=== PATIENT | male | born 1975 | race Caucasian/White ===

== ENCOUNTER 2018-01-14 08:50 | Emergency (ER) | payer SELFPAY ==
[2018-01-14 08:51] VITALS: BP 130/85; PULSE 77; RESP 18; TEMP 36.6; O2SAT 96; BMI 34.3
[2018-01-14] MEDS: AMOXICILLIN 500 MG CAPSULE PO (09:37)
[2018-01-14] MEDS: Naproxen 500 MG Tablet PO (09:37)
--- NOTE | 2018-01-14 09:39 | ED.DCSUM_ITS ---
- ER Visit Summary Date of Service: 01/14/18 Chief Complaint: [] Swelling over the left anterior periauricular area for a few days History of Present Illness: The patient is a 42 M [] hurts for a few days he has noticed some swelling over the anterior left periauricular area, he has had no other illness, he has had no fever no cough no mouth swelling no dental issues no ear complaints, no swelling elsewhere no fever no cough no weight loss no past history Physical Examination: [] 158/92, General, no distress resting comfortably HEENT is generally unremarkable, the oral cavity is unremarkable the mouth and throat are normal for the mouth is soft his teeth have no signs of percussion tenderness, over the left anterior auricular region there is a about 1 cm soft fullness that apparently represents a lymph node, there is no warmth to it redness or pain there is no other HEENT swelling, the neck is soft without adenopathy the abdomen is soft without any organomegaly his skin is unremarkable neurologically he is normal see the rest of the exam below The neck is supple no adenopathy Cardiovascular, regular rate and rhythm Lungs, clear bilateral Abdomen, soft nontender Extremities, no clubbing cyanosis or edema Neurologic, awake alert answering questions appropriately moving all 4 extremities I had a long conversation with the patient his HEENT exam shows no signs of obvious infection his ears and mouth and head exam are unremarkable, we did discuss the concept of cervical adenitis we also discussed the concept of lymphoma and other occult conditions his is familiar with that diagnosis at this time he started on amoxicillin Naprosyn and follow-up with [facility] he is also given referral to ENT and he will return for change in symptoms and understands he may require outpatient therapy and testing if he is not improved Test Results: [] Emergency Department Course and Treatment: [] Treatment Plan: [] Disposition: [] Home stable Impression: [] Left anterior periauricular adenopathy etiology unclear This note was generated with [employer] software. It may contain incorrect words, spelling, and punctuation that were not noted in review of the chart prior to signing ED Disposition - Plan for ED Patient: Chief Complaint: Abscess
--- NOTE | 2018-01-14 09:39 | ED.DEP ---
ED Disposition - Plan for ED Patient: Chief Complaint: Abscess Instructions: ED Lymphangitis, ED Cervical Adenitis Abx Tx Prescriptions: Naproxen [Naprosyn] 500 mg PO BID #14 tab Amoxicillin 500 mg PO TID #30 tab
--- NOTE | 2018-01-14 09:48 | ED.DEP ---
ED Disposition - Plan for ED Patient: Chief Complaint: Abscess Instructions: ED Cervical Adenitis Abx Tx, ED Lymphangitis Prescriptions: Naproxen [Naprosyn] 500 mg PO BID #14 tab Amoxicillin 500 mg PO TID #30 tab Referrals: Care Physician,No Primary [Primary Care Provider] - Zhang Andres MD [STAFF PHYSICIAN] - Brody Gilmore MD [STAFF PHYSICIAN] -
--- OUTSIDE RECORDS SUMMARY | 2018-03-09 13:48 | XMS RPT_ITS ---
:1975 Author Organization [facility] Care Team Providers Name Role Phone Hannah Howard Attending Unavailable Primay Care Physicia, No Primary Care Unavailable PROBLEMS PROBLEMS No Problem Records FoundPROCEDURES PROCEDURES No Procedure Records FoundRESULTS RESULTS EMERGENCY DEPARTMENT Observed: 01/14/2018 Status: F Source: [place] SUMMARY 4:21 PM [facility] REPOSITORY [facility] Medical Records Department [address] [place] [address] Emergency Department Summary 01/14/18 0930 MR#: [id number] Acct: [id number] Name: FLORENCE MATOS Rep #: [id number] : 1975 42 From: Hannah Howard MD PCP: Care Physician, No Primary Status: DEP ER - ER Visit Summary Date of Service: 01/14/18 Chief Complaint: [] Swelling over the left anterior periauricular area for a few days History of Present Illness: The patient is a 42 M [] hurts for a few days he has noticed some swelling over the anterior left periauricular area, he has had no other illness, he has had no fever no cough no mouth swelling no dental issues no ear complaints, no swelling elsewhere no fever no cough no weight loss no past history Physical Examination: [] 158/92, General, no distress resting comfortably HEENT is generally unremarkable, the oral cavity is unremarkable the mouth and throat are normal for the mouth is soft his teeth have no signs of percussion tenderness, over the left anterior auricular region there is a about 1 cm soft fullness that apparently represents a lymph node, there is no warmth to it redness or pain there is no other HEENT swelling, the neck is soft without adenopathy the abdomen is soft without any organomegaly his skin is unremarkable neurologically he is normal see the rest of the exam below The neck is supple no adenopathy Cardiovascular, regular rate and rhythm Lungs, clear bilateral Abdomen, soft nontender Extremities, no clubbing cyanosis or edema Neurologic, awake alert answering questions appropriately moving all 4 extremities I had a long conversation with the patient his HEENT exam shows no signs of obvious infection his ears and mouth and head exam are unremarkable, we did discuss the concept of cervical adenitis we also discussed the concept of lymphoma and other occult conditions his is familiar with that diagnosis at this time he started on amoxicillin Naprosyn and follow-up with [facility] he is also given referral to ENT and he will return for change in symptoms and understands he may require outpatient therapy and testing if he is not improved Test Results: [] Emergency Department Course and Treatment: [] Treatment Plan: [] Disposition: [] Home stable Impression: [] Left anterior periauricular adenopathy etiology unclear This note was generated with [employer] dictation software. It may contain incorrect words, spelling, and punctuation that were not noted in review of the chart prior to signing ED Disposition - Plan for ED Patient: Chief Complaint: Abscess What to do if you have Problems For any increased pain, shortness of breath, bleeding, nausea or vomiting, chest pain, or any unexpected problems, contact your Primary Care Provider. Call [facility] ([phone]) or report to the closest Emergency Room. Call 911 if necessary. 01/14/18 1621 <Electronically signed by Hannah Howard MD> Date Hannah Howard MD Cosigner Signature (If Indicated): Date CC: No Primary Care Physician DISCHARGE INSTRUCTION Observed: 01/14/2018 Status: F Source: [place] 9:49 AM [facility] REPOSITORY [facility] Medical Records Department [address] [place] [address] Discharge Instruction 01/14/1848 MR#: [id number] Acct: [id number] Name: FLORENCE MATOS Rep #: [id number] : 1975 42 From: Hannah Howard MD PCP: Care Physician, No Primary Status: REG ER ED Disposition - Plan for ED Patient: Chief Complaint: Abscess Instructions: ED Cervical Adenitis Abx Tx, ED Lymphangitis Prescriptions: Naproxen [Naprosyn] 500 mg PO BID #14 tab Amoxicillin 500 mg PO TID #30 tab Referrals: Care Physician,No Primary [Primary Care Provider] - Zhang Andres MD [STAFF PHYSICIAN] - Brody Gilmore MD [STAFF PHYSICIAN] - What to do if you have Problems For any increased pain, shortness of breath, bleeding, nausea or vomiting, chest pain, or any unexpected problems, contact your Primary Care Provider. Call [facility] ([phone]) or report to the closest Emergency Room. Call 911 if necessary. 01/14/18948 <Electronically signed by Hannah Howard MD> Date Hannah Howard MD Cosigner Signature (If Indicated): Date CC: No Primary Care Physician DISCHARGE INSTRUCTION Observed: 01/14/2018 Status: F Source: [place] 9:41 AM [facility] REPOSITORY [facility] Medical Records Department [address] [place] [address] Discharge Instruction 01/14/18938 MR#: [id number] Acct: [id number] Name: FLORENCE MATOS Rep #: [id number] : 1975 42 From: Hannah Howard MD PCP: [place] Physician, No Primary Status: REG ER ED Disposition - Plan for ED Patient: Chief Complaint: Abscess Instructions: ED Lymphangitis, ED Cervical Adenitis Abx Tx Prescriptions: Naproxen [Naprosyn] 500 mg PO BID #14 tab Amoxicillin 500 mg PO TID #30 tab What to do if you have Problems For any increased pain, shortness of breath, bleeding, nausea or vomiting, chest pain, or any unexpected problems, contact your Primary Care Provider. Call [facility] ([phone]) or report to the closest Emergency Room. Call 911 if necessary. 01/14/18 0941 <Electronically signed by Hannah Howard MD> Date Hannah Howard MD Cosigner Signature (If Indicated): Date CC: No Primary Care Physician ALLERGIES ALLERGIES DATE TYPE / CODE NAME / CODE REACTION SEVERITY SOURCE 01/14/2018 Drug bee venom Anaphylaxis Unknown [facility] Allergy/416 protein ([facility] 447001(SNOM bee)/[id number] Hospital ED CT) 5(RXNORM) Repository ENCOUNTERS ENCOUNTERS ADMIT/DISCHARGE ACCOUNT ADMITTING ENCOUNTER LOCATION SOURCE NUMBER CLASS 01/14/2018/ [id number] [facility] ing:ED Repository PAYERS PAYERS ENCOUNTER GUARANTOR PAYER SUBSCRIBER SOURCE 01/14/2018 FLORENCE Curry [id number] Primary NOT GIVENUNK [place] Insurance:SELF PAY [facility] [id number]: [phone] Number: Effective Repository [phone] () Date:2018-01-14
== END 2018-01-14 10:08 | disposition home or self-care (01) ==
LOC: ED 09:33
PROVIDERS: Emergency Provider Emergency Medicine
DX: L02.91 Cutaneous abscess, unspecified (principal)
CPT/HCPCS: 99283

== ENCOUNTER → 2018-03-11 09:08 | Outpatient (CLI) | payer SELFPAY ==
--- NOTE | 2018-03-11 | ASPOS_PTH ---
PATIENT: FLORENCE MATOS LOC: [facility] U#:[id number] AGE/SX: 49/M ROOM: RE03/11/[address]: Dr. Weston Workman MD : 1975 BED: DIS: SPEC #: [id number] RECD: 03/11/18 11:09 STATUS: PHYLLIS TAHPAIsabel #: [id number] LUNA: 03/11/18 00:[address]: Weston Workman DEPT: CYTOLOGY RECD BY: Leonard Gandhi ENTERED: 03/11/18 11:12 SP TYPE: ASP HERE OTHR DR: Dr. Richard Sampson Jr., MD Tissues: Parotid gland, NOS Procedures: Pap Stain (control) Special Stain Group II Surgery Specimen Level IV Diff Quik Stain (control) Cell Block Cytology Other Fine Needle Asp on Site HEADER OPERATION: FNA left parotid mass PRE-OP DIAGNOSIS: Left parotid mass TISSUE SUBMITTED: FNA left parotid mass, smears and fluid for cytology and cell block DIAGNOSIS CYTOLOGY Fine needle aspiration, left parotid mass (smears and cell block): Negative for malignant cells. See comment. AM:feroz 03/12/18 COMMENT The specimen is evaluated at the time of FNA by Dr. Francis. Immediate Evaluation = Consistent with benign cyst contents. The specimen contains abundant macrophages and degenerating, inflammatory and epithelioid cells. 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 Clinical correlation is suggested. A near complete resolution of lesion was appreciated postaspiration of 5.5 ml of clear yellow fluid. CYTOLOGY STUDY Slides are reviewed. CYTOLOGY GROSS Received is 5.5 ml of yellow fluid labeled with the patient's name, and designated left parotid mass. Five imprints and four paps are made from the submitted fluid and the rest is added to CytoLyt for cell block preparation. Submitted for cytology study. / AM:feroz 03/11/18 TC:5 CPT: 61034, 85732, 30634, 11450
== END ==
LOC: LAB 09:09
PROVIDERS: Family Provider Internal Medicine; PCP Internal Medicine; Referring Provider Otolaryngology; Visit Provider Otolaryngology
DX: R22.1 Localized swelling, mass and lump, neck (principal)
CPT/HCPCS: 10021; 88161; 88305; 88313

== ENCOUNTER 2019-06-24 16:48 | Emergency (ER) | payer SELFPAY ==
[2019-06-24 16:50] VITALS: BP 124/86; PULSE 80; RESP 17; TEMP 36.6; O2SAT 95; BMI 34.0
--- NOTE | 2019-06-24 17:20 | RAD_ITS ---
STUDY: X-RAY CHEST REASON FOR EXAM: Male, 44 years old. Chest heaviness, cough, sore throat TECHNIQUE: 2 frontal views of the chest COMPARISON: None. FINDINGS: Cardiac silhouette unremarkable. Pulmonary vascularity unremarkable. Aorta unremarkable. No focal airspace opacities. No pleural effusions. Upper abdomen unremarkable. Osseous structures intact. No pneumothorax. RAD/Chest 1 View (Portable) IMPRESSION: No acute cardiopulmonary findings Electronically Signed: Ottoniel Escobedo, at 17:52 EDT Tel , Service support ,
--- NOTE | 2019-06-24 17:56 | ED.DCSUM_ITS ---
- ER Visit Summary Date of Service: 06/24/19 Chief Complaint: [Sore throat, left earache, and mild cough ] History of Present Illness: The patient is a 44 M [did with symptoms yesterday.] Patient states that initially started with some mild discomfort in his left ear. He does describe a sore throat. Had a cough that slightly productive at times. Patient does have a chronic cough but seems to be somewhat increased from his normal. 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 He denies any sick contacts. He is not been exposed to anybody with COVID 19. No sick contacts at home. Patient's had no vomiting or diarrhea. Patient has no primary care physician. Physical Examination: [HEENT-PERRLA, EOMI. Cranial nerves II through XII grossly intact. TMs clear. Mucous membranes moist. No adenopathy. Patient has a mild pharyngeal erythema. No trismus on exam. No exudates. No adenopathy. Cardiovascular-regular rate and rhythm without murmur or ectopy Lungs-clear to auscultation, chest wall stable without crepitus or subcu emphysema Abdomen-normoactive bowel sounds, soft, nontender, no rebound or rigidity, no peritoneal signs. Extremities-intact ?4, normal range of motion, normal pulses, atraumatic] Test Results: [Chest x-ray obtained was unremarkable. Strep screen was negative.] Emergency Department Course and Treatment: [] Treatment Plan: [Patient advised use ibuprofen or Tylenol for discomfort. 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 Patient does not meet criteria for testing for COVID 19 currently. Patient is advised to self quarantine for the next 14 days. Patient understands I cannot rule out COVID-19. Patient advised to return if increased difficulty breathing or condition should worsen anyway.] Disposition: [Discharged home in stable condition] Impression: [Viral URI] This note was generated with [employer] dictation software. It may contain incorrect words, spelling, and punctuation that were not noted in review of the chart prior to signing ED Disposition - Plan for ED Patient: Referrals: Care Physician,No Primary [Primary Care Provider] -
--- NOTE | 2019-06-24 17:59 | ED.DEP ---
ED Disposition - Plan for ED Patient: Instructions: ED Upper Resp Infec No Abx Tx Referrals: Care Physician,No Primary [Primary Care Provider] - Danny White MD [STAFF PHYSICIAN] - 3-5 Days
== END 2019-06-24 18:15 | disposition home or self-care (01) ==
LOC: ED 17:43
PROVIDERS: Emergency Provider Emergency Medicine
DX: J06.9 Acute upper respiratory infection, unspecified (principal); Z72.0 Tobacco use
CPT/HCPCS: 71045; 87880; 99282

== ENCOUNTER 2019-07-24 16:37 | Emergency (ER) | payer SELFPAY ==
[2019-07-24 16:37] VITALS: BP 158/87; PULSE 70; RESP 15; TEMP 36.6; O2SAT 96; BMI 33.5
--- NOTE | 2019-07-24 17:35 | RAD_ITS ---
STUDY: X-RAY - RIGHT SHOULDER REASON FOR EXAM: Male, 44 years old. fall, right shoulder pain TECHNIQUE: 4 view(s) of the shoulder. COMPARISON: None. FINDINGS: Normal glenohumeral articulation. There is degenerative arthrosis of the acromioclavicular joint without inferior osseous spur formation. Normal acromion. Normal humeral head and visualized proximal humerus. The soft tissue structures are unremarkable. Normal visualized pulmonary apex. RAD/Shoulder min 2 Views IMPRESSION: No acute osseous injury is evident. Electronically Signed: Osmany Morelos MD at 17:57 EDT Tel , Service support ,
[2019-07-24] MEDS: traMADol 50 MG Tablet PO (17:40)
[2019-07-24] MEDS: Naproxen 500 MG Tablet PO (17:40)
--- NOTE | 2019-07-24 18:07 | ED.VIS.FALL ---
History of Present Illness Chief Complaint: Fall Informant: Patient Occurred: Yesterday Mechanism/Context: Trip - over his cat on the step as coming down staircase Fall down steps #: 2-3, but caught himself w/ hand on railing Location: R upper back Quality of Pain: Aching Current Severity: Severe Maximum Severity: Severe Worsened by: movement Relieved by: remaining still Associated Symptoms: Parasthesias - in right fingers 2-4. Negative for: Weakness, Loss of function, Inability to ambulate, Loss of consciousness Narrative: Patient states he was coming down the stairs yesterday, tripped over his cat, and try to break his fall by grabbing onto the rail with his right hand and somehow spun himself around as he was falling down the last 2 steps hitting his right periscapular area on the door jam. He has had significant pain in that area, with radiation a little into his right axillary area. No trouble breathing or pleuritic discomfort. He has had the numbness in his fingers but nowhere else in the right upper extremity. 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 No other issues or injuries, no numbness or tingling down his legs or weakness there. Right hand dominant. Past Medical History - Allergies and Home Meds Allergies/Adverse Reactions: Allergies bee venom protein (honey bee) Allergy (Verified 07/24/19 16:40) Anaphylaxis Primary Care Physician: Care Physician,No Primary [Primary Care Provider] - Past Medical History: None Smoking Status: Current every day smoker Review of Systems General: Denies: Chills, Fever, Sweats Eyes: Denies: Visual changes - bilaterally, Diplopia ENT: Denies: Rhinorrhea, Sore throat Cardiovascular: Denies: Chest pain, Palpitations Respiratory: Denies: Dyspnea, Cough, Dyspnea on exertion Gastrointestinal: Denies: Abdominal pain, Nausea, Vomiting, Diarrhea, Melena, Hematochezia Genitourinary: Denies: Dysuria, Hematuria, Frequency Musculoskeletal: Reports: Back pain. Denies: Extremity Pain Skin: Denies: Rash, Wounds Neurological: Reports: Parasthesia. Denies: Headache, Weakness Physical Exam Vital Signs/Narrative: Vital Signs Temp Pulse Resp BP Pulse Ox 07/24/19 16:37 97.8 F 70 15 158/87 H 96 Inital Vital Signs reviewed: Yes General: Well nourished, Well developed, - - nad Head: Normocephalic, Atraumatic Eyes: Perrl, EOMI ENT: TM's clear, No hemotympanum or drainage, No trauma Neck: Nontender, Full ROM Cardiovascular: Regular rate, Regular rhythm, No murmurs Respiratory: No distress, CTA bilaterally, Chest nontender Abdomen: Soft, Nontender, Nondistended, Normal bowel sounds Back: Paraspinal Tenderness - In right rhomboids and/or the medial border of the right scapula. No deformities.. Negative for: Spinal Tenderness Extremeties: Full range of motion of the right shoulder, he has no subacromial, acromioclavicular joint, or acromion tenderness. Full range of motion throughout all other joints of all 4 extremities. Skin: Normal color, No rash Neurological: Alert, Oriented x3, Cranial nerves II-XII grossly intact, Normal Strength, Normal Gait, Parasthesia - In fingers 2-4 and right hand, both sides of each finger. Negative Tinel's at both the ulnar tunnel and at the median tunnel of the wrist. Psychological: Normal affect, Normal Mood Diagnostic/Tx/Re-eval Clinical Impression(s) from Imaging Studies Shoulder X-Ray 07/24/19 17:35 IMPRESSION: No acute osseous injury is evident. Electronically Signed: Osmany Morelos MD at 17:57 EDT Tel , Service support , - Medical Decision Making X-rays of the right shoulder and scapula are normal. His paresthesias are not explained by a nerve root injury or a peripheral nerve injury. That leaves the brachial plexus. With this mechanism, he did not hyperextend or hyperabduct, etc. with regards to his right shoulder. This would be a very difficult injury to have given the fact that he basically sustained a contusion to his upper back. It is likely that the paresthesias will resolve given the normal aspects of his exam. In that case would be a simple neurapraxia. Advised to follow-up with his doctor, I do not think he needs any advanced imaging right now since it would not change the course of disposition today, but if the tingling does not resolve in about a week I would be sure and see his doctor for further evaluation and/or referral. Discussed with patient is comfortable with that plan given something for pain. He states tramadol here really helped. He has no PCP so he was referred to the next doctor on the unassigned list. ED Disposition - Plan for ED Patient: Disposition: Home or Assisted Living Diagnosis: Contusion of right upper back excluding scapular region, Paresthesia of right upper extremity Instructions: ED Mechanical Fall, ED Contusion Back, ED Paraesthesias Prescriptions: traMADol [Ultram] 50 mg PO Q4H PRN PRN 3 Days #16 tablet PRN Reason: Pain Transmission Status: Sent to [facility] Referrals: Robert Grigsby MD [STAFF PHYSICIAN] - 1 Week if not improving
== END 2019-07-24 19:05 | disposition home or self-care (01) ==
PROVIDERS: Emergency Provider Emergency Medicine
DX: S20.221A Contusion of right back wall of thorax, initial encounter (principal); W10.9XXA Fall (on) (from) unspecified stairs and steps, initial encounter; Y93.01 Activity, walking, marching and hiking; Y92.9 Unspecified place or not applicable; R20.2 Paresthesia of skin; F17.200 Nicotine dependence, unspecified, uncomplicated
CPT/HCPCS: 73030; 99283

== ENCOUNTER 2020-07-06 13:03 | Emergency (ER) | payer SELFPAY ==
[2020-07-06 13:04] VITALS: BP 114/83; PULSE 83; RESP 16; TEMP 36.8; O2SAT 96; BMI 31.6
--- NOTE | 2020-07-06 13:15 | ED.VIS.BACK ---
HPI History of Present Illness Chief Complaint: Back Informant: patient Onset/Context/Timing Onset: Days (3 days) Injury: twisting (Removing water inlet valve on washer) Current Severity: Mild Maximum Severity: Moderate Associated Symptoms Associated Symptoms: Negative for Radiation to Right Leg and Radiation to Left Leg Narrative Narrative: Patient presents with low back pain. He states only thing he can think of was twisting to remove the water and that valve on his washer 2 or 3 days ago. He woke the next morning with tightness across his lower back. He was not able to go to work today because of pain. Pain does not radiate to his legs. No problems with bowel or bladder control. PFSH PFSH no medical history Home Medications cyclobenzaprine 10 mg PO BID PRN #10 tab 07/06/20 [Rx Last Taken Unknown] lidocaine [Lidoderm] 1 patch TOPICAL DAILY PRN #10 ea 07/06/20 [Rx Last Taken Unknown] naproxen [Naprosyn] 500 mg PO BID PRN #20 tab 07/06/20 [Rx Last Taken Unknown] Allergy/AdvReac Type Severity Reaction Status Date / Time bee venom protein (honey bee) Allergy Anaphylaxis Verified 07/06/20 13:06 Social History Smoking Status: Current every day smoker ROS ROS ED Constitutional Constitutional ED: Denies chills or fever(s) Eyes Eyes: Denies change in vision ENT ENT ED: Denies sore throat Cardiovascular Cardiovascular: Denies chest pain Respiratory/Chest Respiratory/Chest: Denies cough or dyspnea Gastrointestinal Gastrointestinal: Denies abdominal pain, diarrhea, nausea or vomiting Genitourinary Genitourinary ED: Denies dysuria Musculoskeletal Musculoskeletal: Reports back pain Integumentary Denies rash Neurologic Neurologic: Denies headache(s), paresthesias or weakness Psychiatric Psychiatric: Denies anxiety or depression Endocrine Endocrinology: Denies polydipsia or polyuria Allergic/Immunologic Allergic/Immunologic ED: Denies urticaria EXAM Physical Exam Const Vital Signs: 07/06/20 13:04 Temperature 98.3 F Temperature Source Temporal Pulse Rate 83 Respiratory Rate 16 Blood Pressure 114/83 H Blood Pressure Mean 93 Pulse Ox 96 Oxygen Delivery Method Room Air Positive well nourished and well developed General Appearance ED: well developed HEENT Reports normocephalic and head/scalp atraumatic Eyes PERRL and EOMs intact bilaterally Neck supple Chest Wall inspection of chest normal and palpation of chest normal Resp normal respiratory effort and clear to auscultation bilaterally Cardio regular rate and regular rhythm GI normal to inspection, nondistended, normoactive bowel sounds Palpation: soft Back/Spine no CVA tenderness, normal to inspection and no thoracic nor lumbar tenderness Back/Spine Narrative: Reproducible tenderness in the right lumbar paraspinal muscles. No overlying skin change. Extremity normal to inspection Neuro oriented x3 and no sensory deficits noted Sensorium / Orientation: alert Motor Exam: strength 5/5 throughout Psych mental status grossly normal Skin no rashes or lesions noted [facility] Treatment and Re-Evaluation Comments:: Patient will be given Lidoderm patch and naproxen here. He will be given prescriptions for the same along with Flexeril. Patient is referred to Dr. White, esteban on the no doc list. He is written a work note for today. Discharge Plan Triage Chief Complaint: Back ED Provider: Itzel Harrington Dx/Rx/DC Orders Clinical Impression: Strain of lumbar paraspinal muscle Instructions: ED Back Spasm, No Trauma, ED Back Sprain/Strain Prescriptions: New cyclobenzaprine 10 mg tablet 10 mg PO BID PRN (Reason: muscle spasm) Qty: 10 RF: 0 naproxen [Naprosyn] 500 mg tablet 500 mg PO BID PRN (Reason: pain) Qty: 20 RF: 0 lidocaine [Lidoderm] 5 % adhesive patch,medicated 1 patch topical DAILY PRN (Reason: pain) Qty: 10 RF: 0 Stand Alone Forms: ED Work / School Excuse Primary Care Provider: Care Physician,No Primary Referrals: Danny White MD [STAFF PHYSICIAN] - 1-2 Weeks Care Physician,No Primary [Primary Care Provider] - Disposition Disposition: Home, self care
[2020-07-06] MEDS: Lidocaine 5% Patch 1 PATCH TOPICAL (14:07)
[2020-07-06] MEDS: Naproxen 500 MG Tablet PO (14:08)
== END 2020-07-06 14:10 | disposition home or self-care (01) ==
PROVIDERS: Emergency Provider Emergency Medicine
DX: S39.012A Strain of muscle, fascia and tendon of lower back, initial encounter (principal); X58.XXXA Exposure to other specified factors, initial encounter; Y93.89 Activity, other specified; Y92.9 Unspecified place or not applicable; Y99.9 Unspecified external cause status; F17.200 Nicotine dependence, unspecified, uncomplicated
CPT/HCPCS: 99283